=== PATIENT | female | born 1970 | race Caucasian/White ===

== ENCOUNTER 2021-06-28 14:16 | Emergency (ER) | payer BC, SELFPAY ==
[2021-06-28 14:58] VITALS: BP 166/110; PULSE 67; RESP 18; TEMP 36.8; O2SAT 95; BMI 31.6
--- NOTE | 2021-06-28 15:19 | USR_ITS ---
PROCEDURE INFORMATION: Exam: US Duplex Right Lower Extremity Veins, Limited Exam date and time: 06/28/2021 3:19 PM Age: 51 years old Clinical indication: Pain; Leg, lower; Right; Additional info: Rle pain, no injury TECHNIQUE: Imaging protocol: Real-time Duplex ultrasound of the Right Lower Extremity with 2-D coronado scale, color Doppler flow and spectral waveform analysis with image documentation. Limited exam was focused on the right lower extremity veins. COMPARISON: No relevant prior studies available. FINDINGS: Right deep veins: Unremarkable. The common femoral, femoral, proximal profunda femoral, popliteal, and peroneal veins are patent without thrombus. Normal Doppler waveforms. Normal compressibility and/or augmentation response. Right superficial veins: Unremarkable. Saphenofemoral junction is patent without thrombus. Soft tissues: Unremarkable. US/[place] [id number] IMPRESSION: No evidence for deep venous thrombosis.
--- NOTE | 2021-06-28 15:22 | W.ED.EXTPRO ---
HPI - Extremity Problem General: Chief complaint: Extremity Problem,Nontraumatic Stated complaint: [place] [facility] [place] Time Seen by Provider: 06/28/21 15:10 History of Present Illness: HPI Narrative: Patient states she woke up with right lower extremity pain in the muscles today. Denies any injury. Thinks it might be slightly swollen. MD Complaint: extremity pain Onset (ago): hour(s) Location: right and lower extremity Severity scale (1-10): 3 Quality: aching Radiation: none Relieving factors: immobilization Exacerbating factors: range of motion and weight bearing Associated symptoms: Reports no associated symptoms; Deny chest pain, fever(s) or rash Review of Systems Const: Denies: fever(s), chills or body aches Eyes: Denies: change in vision or blurry vision ENMT: Denies: throat pain or nasal congestion Card: Denies: chest pain or dyspnea on exertion Resp: Denies: dyspnea, productive cough or non-productive cough GI: Denies: abdominal pain, nausea or vomiting Musc: Reports: extremity pain (Right lower extremity calf muscle) Skin/Breast: Denies: rash Neuro: Denies: headache(s) Psych: Denies: anxiety or depression Dread/Lymph: Denies: easy bruising PFSH ED PFSH: Social History Smoking and tobacco status: never smoked Physical Exam Const: COMMON NORMALS: no acute distress, average body habitus and patient oriented x3 HENMT: COMMON NORMALS: normocephalic HEAD & SCALP: normal to inspection and normocephalic FACE & SINUS: normal facial exam Eye: COMMON NORMALS: conjunctivae normal GENERAL EYE: appearance normal, both eyes and all related structures CONJUNCTIVA: Yes conjunctivae normal Neck/C-Spine: COMMON NORMALS: no JVD Chest: COMMONS NORMALS: normal inspection of the chest Resp: COMMON NORMALS: normal respiratory effort and clear to auscultation bilaterally AUSCULTATION: clear to auscultation bilaterally Cardio: COMMON NORMALS: no JVD, regular rate and regular rhythm RATE: regular rate RHYTHM: regular rhythm GI: COMMON NORMALS: Normal to inspection, nondistended, normoactive bowel sounds present Extremity: NARRATIVE EXTREMITY EXAM: Positive Homans' sign right calf tenderness stability the calf muscle no redness or swelling noted distal neurovascular intact. Neuro: COMMON NORMALS: patient oriented x3 Course Vital Signs: Vital signs: Vital Signs Temperature 98.2 F 06/28/21 14:58 Pulse Rate 66 06/28/21 16:22 Respiratory Rate 14 06/28/21 16:22 Blood Pressure 164/111 06/28/21 16:22 Pulse Oximetry 95 06/28/21 16:22 MDM - Extremity (Nontraumatic) MDM Narrative: Medical decision making narrative: Right leg calf strain and hypertension. DVT study was negative. Patient encouraged to check blood pressure daily follow-up primary care provider. Discharge Plan Discharge Patient Disposition: Home Clinical Impression: HTN (hypertension) Qualifiers: Hypertension type: essential hypertension Qualified Code(s): I10 - Essential (primary) hypertension Muscle strain of right lower leg Qualifiers: Encounter type: initial encounter Qualified Code(s): S86.911A - Strain of unspecified muscle(s) and tendon(s) at lower leg level, right leg, initial encounter Condition: Stable Prescriptions: New Voltaren Arthritis Pain 1 % gel 4 g topical QID Qty: 100 RF: 0 No Action levothyroxine [Synthroid] 88 mcg tablet 88 mcg PO DAILY Qty: 30 RF: 0 Discharge Orders: Discharge ED (Routine); Ordered 06/28/21 Ordered By: Vinh Warner Referrals: Airam Castano DO [Primary Care Provider] - Discharge Diet: Usual diet Discharge Activity: Increase activity as tolerated Patient Instructions: Muscle Strain (ED), Chronic Hypertension (ED) Activity Restrictions/Additional Instructions: Follow-up with medical provider as directed. Take medications as prescribed. Return to the ER or your medical provider if condition worsens. Please read and understand discharge instructions. If any questions ask please. Alternate moist heat and cold to area. Check blood pressure daily. Stand Alone Forms: Work/School Release Coding Level of Care Code ED Plant Security Guard for Ambar Fwd Exam Comprehensive
[2021-06-28 16:22] VITALS: BP 164/111; PULSE 66; RESP 14; O2SAT 95
== END 2021-06-28 17:01 | disposition home or self-care (01) ==
PROVIDERS: Emergency Provider Nurse Practitioner Family; PCP Family Medicine
DX: S86.911A Strain of unspecified muscle(s) and tendon(s) at lower leg level, right leg, initial encounter (principal); I10 Essential (primary) hypertension; X58.XXXA Exposure to other specified factors, initial encounter
CPT/HCPCS: 93971; 99281

== ENCOUNTER → 2021-09-03 16:36 | Outpatient (BNVA) | payer BC, SELFPAY | PROVIDERS: PCP Family Medicine; Visit Provider Family Medicine | DX: I10 Essential (primary) hypertension (principal); E03.9 Hypothyroidism, unspecified; Z13.220 Encounter for screening for lipoid disorders; Z13.6 Encounter for screening for cardiovascular disorders | CPT/HCPCS: 80053; 80061; 84439; 84443; 85025 ==

== ENCOUNTER → 2021-10-14 10:30 | Outpatient (BNVA) | payer BC, SELFPAY | PROVIDERS: PCP Family Medicine; Visit Provider Family Medicine | DX: E03.9 Hypothyroidism, unspecified (principal) | CPT/HCPCS: 84439; 84443 ==

== ENCOUNTER → 2022-01-27 12:03 | Outpatient (BNVA) | payer SELFPAY | PROVIDERS: PCP Family Medicine; Visit Provider Family Medicine | DX: J02.9 Acute pharyngitis, unspecified (principal) | CPT/HCPCS: 87071; 87880 ==

== ENCOUNTER → 2022-07-06 10:40 | Outpatient (BNVA) | payer SELFPAY | PROVIDERS: PCP Family Medicine; Visit Provider Family Medicine | DX: I10 Essential (primary) hypertension (principal); E03.9 Hypothyroidism, unspecified; Z02.1 Encounter for pre-employment examination | CPT/HCPCS: 80053; 80061; 82043; 84443; 85025 ==

== ENCOUNTER 2023-11-24 08:41 | Emergency (ER) | payer OTHER, SELFPAY ==
[2023-11-24] VITALS (7 sets, daily range): BP systolic 130–236; BP diastolic 87–164; PULSE 67–88; RESP 18; O2SAT 94–97; BMI 35.1
--- NOTE | 2023-11-24 08:56 | XR_ITS ---
WS: [id number] XR chest 1V portable [id number] REASON FOR EXAM: cp FINDINGS: Chest is unchanged compared to 03/14/2017. Moderate tortuosity and ectasia of the thoracic aorta. Normal heart size. Calcified granulomas disease in both hemithoraces. No acute/subacute pulmonary parenchymal or pleural abnormality. Mild to moderate degenerative spondylosis in the mid and lower thoracic spine. IMPRESSION: Stable chest without acute abnormality.
--- NOTE | 2023-11-24 08:56 | ECG_ITS ---
[facility] Test Date: 2023-11-24 Pat Name: Niyah Doll Department: Room: Gender: Female Bpm Architect: : 1970 Requested By: Peter Troy Order Number: [id number] Ania MD: Delbert Vasquez M.D. Measurements Intervals [place] Rate: 90 P: 16 ME: 124 QRS: 34 QRSD: 76 T: 57 QT: 374 QTc: 459 Interpretive Statements SINUS RHYTHM No previous ECG available for comparison Electronically Signed On 11-24-2023 16:29:18 QUARRYING MANAGER by Delbert Vasquez M.D. [id number] f
--- NOTE | 2023-11-24 08:57 | W.ED.CHESTPA ---
HPI - Chest Pain General: Chief Complaint: Chest Pain Stated Complaint: Chest Pains Time Seen by Provider: 11/24/23 08:44 Source: patient Mode of arrival: ambulatory Limitations: no limitations History of Present Illness: This patient was referred to the emergency department because of concerns about possible chest pain equivalent. She states that yesterday she had some discomfort in her shoulder blade that seem to radiate up into her neck. She states that she had another episode today. It was noted that she was hypertensive yesterday as well as today and because of the nature of her symptoms was referred to the emergency department. She was started on antihypertensives yesterday but has not completed that regimen yet. She does not have a history of hypertension. She does have a history of thyroid dysfunction and is taking thyroid replacement. She is a non-smoker, nonalcohol user, none street drug user. She has not recently taken any ueqi-[id number]-pfsiosm cough and cold medications. She does admit to increased exogenous stressors with new medical diagnoses and her brother which is causing some anxiety and stress. She has had a hysterectomy as well as a cholecystectomy. He does have his family history of coronary disease. There is no associated shortness of breath, diaphoresis, nausea with her current symptoms. Associated symptoms: Deny abdominal pain, fever(s), nausea, palpitations, syncope or vomiting Review of Systems Const: Denies: fever(s) or chills Eyes: Denies: change in vision ENMT: Denies: throat pain or odynophagia Card: Denies: palpitations, syncope or pre-syncope Resp: Denies: productive cough, non-productive cough or wheezing GI: Denies: abdominal pain, nausea, vomiting or diarrhea : Denies: flank pain, difficulty voiding, dysuria or urinary frequency Musc: Reports: neck pain and back pain; Denies: extremity pain or extremity swelling Skin/Breast: Denies: rash or pruritus Neuro: Denies: headache(s), numbness in extremities, weakness in extremities, Slurred speech present or difficulty communicating thoughts Endo: Denies: polyuria or polydipsia PFSH ED PFSH: Social History Smoking and tobacco/nicotine status: never used tobacco/nicotine Alcohol intake: never Substance/Drug Use: never Physical Exam Narrative: EXAM NARRATIVE: She makes good eye contact. She is slightly anxious but answers questions in a goal-directed logical fashion. Const: COMMON NORMALS: patient oriented x3, healthy appearing and alert GENERAL APPEARANCE: cooperative and comfortable NUTRITIONAL APPEARANCE: overweight ORIENTATION/CONSCIOUSNESS: Yes awake HENMT: COMMON NORMALS: normocephalic, Normal external nose present, Normal nasal mucous membranes and turbinates present, moist oral mucous membranes and oropharynx normal HEAD & SCALP: normocephalic NOSE: Normal external nose present and Normal nasal mucous membranes and turbinates present Eye: COMMON NORMALS: Equal, round and reactive pupils present, EOMs intact bilaterally and conjunctivae normal CONJUNCTIVA: Yes conjunctivae normal PUPIL: Yes Equal, round and reactive pupils present Neck/C-Spine: COMMON NORMALS: no lymphadenopathy, no JVD and Thyroid normal THYROID: Thyroid normal CERVICAL SPINE: Yes cervical ROM normal and Yes Trapezius muscle tenderness bilateral OTHER: He has tenderness along the superior ridges of the trapezius bilaterally. Discrete trigger points are noted. She has no midline tenderness or step-off. She has normal range of motion to rotation and sidebending and forward bending. Chest: COMMONS NORMALS: normal inspection of the chest Resp: COMMON NORMALS: normal respiratory effort, No retractions, No use of accessory muscles and clear to auscultation bilaterally EFFORT & INSPECTION: Yes able to speak in complete sentences AUSCULTATION: clear to auscultation bilaterally Cardio: COMMON NORMALS: no JVD, regular rate, regular rhythm, No murmurs present (Cardio) and Peripheral pulses 2+ throughout RATE: regular rate RHYTHM: regular rhythm PERIPHERAL PULSES: Peripheral pulses 2+ throughout GI: COMMON NORMALS: Normal to inspection, nondistended, normoactive bowel sounds present and Soft to palpation PALPATION: Yes Soft to palpation : COMMON NORMALS: Yes no CVA tenderness BLADDER/KIDNEY EXAM: Yes no CVA tenderness Back/Pelvis: COMMON NORMALS: no CVA tenderness, thoracic and lumbar spine normal to inspection, thoraco-lumbar ROM normal and straight leg raise negative bilaterally Extremity: COMMON NORMALS: normal to inspection, full ROM, capillary refill normal, no calf tenderness and no pedal edema Neuro: COMMON NORMALS: patient oriented x3, moves all extremities and no focal motor deficits SENSORIUM/ORIENTATION: Yes alert CRANIAL NERVES: Yes CN normal except as noted Psych: COMMON NORMALS: mental status grossly normal MOOD & AFFECT: Yes depressed mood and Yes tearful Skin: COMMON NORMALS: no rashes or lesions noted, no wounds and turgor normal GENERAL SKIN EXAM: no rashes or lesions noted and turgor normal Course Reevaluation(s): Reevaluation #1: Patient is doing well. Pressure is now in the 128/70-80 range. She is comfortable and relaxed. No new or focal findings on repeat examination. I discussed current findings their implications limitations etc. Undoubtedly some of her exogenous stress is contributing to her labile hypertension or in fact may have unmasked underlying and unknown hypertension. We discussed monitoring blood pressure at home, salt avoidance, initiating the medication regimen prescribed yesterday and also return precautions with both she and spouse. Time: 10:54 Vital Signs: Vital signs: Vital Signs Pulse Rate 74 11/24/23 09:16 Respiratory Rate 18 11/24/23 08:45 Blood Pressure 168/95 11/24/23 09:16 Pulse Oximetry 96 11/24/23 09:16 Oxygen Delivery Me thod Room Air 11/24/23 09:16 MDM - Chest Pain Medical Decision Making This patient presented to the emergency department because of concerns about interscapular discomfort as well as marked elevation in blood pressure. Patient's not had a known history of hypertension in the past but does admit to increasing amount of emotional stress recently with a new diagnosis and a brother. She had complained of some intrascapular pain without any diaphoresis shortness of breath etc. No prior history of similar symptoms no history of thromboembolic events no risk of same etc. Clinical examination was only significant and that she had significant systolic and diastolic hypertension. She had no EKG changes of concern. She did have a clinical exam which showed trapezius tender and trigger points and spasm but no other significant clinical findings. Workup to ensure no evidence of ACS, over replaced thyroid, abnormal kidney function ensued. Findings were reassuring blood pressure abated with time as well as a low-dose of the benzodiazepine while in the emergency department. She is stable at this time to be discharged she has a medication regimen prescribed by her primary care doctor that she will initiate we discussed home blood pressure monitoring as well as return precautions. Lab Data I reviewed the patient's lab results. 11/24/23 09:02 11/24/23 09:02 Laboratory Results WBC 8.18 10^3/uL (3.29-11.43) 11/24/23 09:02 RBC 5.11 10^6/uL (3.85-5.65) 11/24/23 09:02 Hgb 14.80 g/dL (11.27-16.99) 11/24/23 09:02 Hct 42.8 % (36-47) 11/24/23 09:02 MCV 83.8 fl (85-98) L 11/24/23 09:02 MCH 29.0 pg (27-33) 11/24/23 09:02 MCHC 34.6 g/dL (30-55) 11/24/23 09:02 RDW 13.0 % (12.1-15.1) 11/24/23 09:02 Plt Count 205 10^3/cmm (157-399) 11/24/23 09:02 MPV 11.7 fL (7.4-10.4) H 11/24/23 09:02 Neut % (Auto) 53.7 % 11/24/23 09:02 Lymph % (Auto) 33.7 % 11/24/23 09:02 [place] % (Auto) 9.2 % 11/24/23 09:02 Eos % (Auto) 2.8 % 11/24/23 09:02 Baso % (Auto) 0.4 % 11/24/23 09:02 Neut # (Auto) 4.39 10^3/uL (1.8-7.7) 11/24/23 09:02 Lymph # (Auto) 2.8 10^3/uL (0.8-4.8) 11/24/23 09:02 [place] # (Auto) 0.8 10^3/uL (0.2-0.9) 11/24/23 09:02 Eos # (Auto) 0.2 10^3/uL (0.0-0.8) 11/24/23 09:02 Baso # (Auto) 0.0 10^3/uL (0.0-0.1) 11/24/23 09:02 Nucleated RBC % (auto) 0 % 11/24/23 09:02 Nucleated RBCs # 0.0 /100WBC 11/24/23 09:02 Sodium 139 mmol/L (136-145) 11/24/23 09:02 Potassium 3.8 mmol/L (3.5-5.1) 11/24/23 09:02 Chloride 102 mmol/L (98-107) 11/24/23 09:02 Carbon Dioxide 25 mmol/L (22-29) 11/24/23 09:02 Anion Gap 15.8 (5-19) 11/24/23 09:02 BUN 13 mg/dL (6-20) 11/24/23 09:02 Creatinine 0.8 mg/dL (0.5-0.9) 11/24/23 09:02 GFR Calculation 74.5 mL/min (90-130) L 11/24/23 09:02 Glucose 90 mg/dL (65-115) 11/24/23 09:02 Calculated Osmolality 288 mOsm/kg (285-295) 11/24/23 09:02 Calcium 8.9 mg/dL (8.5-10.5) 11/24/23 09:02 Troponin T Baseline 7 ng/L (0-10) 11/24/23 09:02 TSH 1.29 uIU/mL (0.27-4.20) 11/24/23 09:02 All radiology interpretation(s) finalized by discharge EKG Data EKG 1: I personally reviewed and interpreted this EKG as follows: Interpretation: Resting EKG reveals a ventricular rate of 90 bpm. SC interval, QRS duration, corrected QT interval normal. [place] is normal. No acute ST-T wave changes. Normal sinus rhythm without any ischemic changes. Discharge Plan Discharge Patient Disposition: Home Clinical Impression: Elevated blood pressure reading, Grief reaction Condition: Stable Prescriptions: No Action thyroid (pork) [TRAVELING CLERK Thyroid] 90 mg tablet 90 mg PO DAILY cyclobenzaprine 10 mg Tablet 10 mg PO TID PRN (Reason: Muscle Spasm) levothyroxine 88 mcg Tablet 88 mcg PO DAILY losartan 25 mg Tablet 25 mg PO DAILY Lexapro 10 mg Tablet 10 mg PO DAILY Discharge Orders: Discharge ED (Routine); Ordered 11/24/23 Ordered By: Peter Troy Referrals: Raul Amaya DO [Primary Care Provider] - 2 weeks Discharge Diet: Usual diet and Low Salt Discharge Activity: Increase activity as tolerated Patient Instructions: Opioid Safety, Pain Management Activity Restrictions/Additional Instructions: Purchase or acquire a blood pressure cuff for monitoring your blood pressure at home which we recommend doing once daily after you have been sitting for 10 to 15 minutes. Initiate the medications prescribed by your primary care doctor today. If you develop any ongoing symptoms of chest pain shortness of breath or other concerns at any time you are welcome to return to the emergency department. Stand Alone Forms: Work/School Release Coding Level of Care Code ED Clinical Research Nurse Coordinator for Ambar Larose
[2023-11-24 09:11] LABS: Basophils % 0.4 %; Eosinophils # 0.2 10^3/uL (0.0-0.8); Eosinophils % 2.8 %; Hematocrit 42.8 % (36-47); Lymphocytes # 2.8 10^3/uL (0.8-4.8); Lymphocytes % 33.7 %; Mean Corpuscular HGB Conc 34.6 g/dL (30-55); Mean Corpuscular Volume 83.8 fl (85-98); Mean Platelet Volume 11.7 fL (7.4-10.4); Monocytes # 0.8 10^3/uL (0.2-0.9); Monocytes % 9.2 %; Neutrophils # 4.39 10^3/uL (1.8-7.7); Neutrophils % 53.7 %; Nucleated Red Blood Cells % 0 %; Platelet Count 205 10^3/cmm (157-399); Red Blood Count 5.11 10^6/uL (3.85-5.65); White Blood Count 8.18 10^3/uL (3.29-11.43)
[2023-11-24] MEDS: LORazepam 2 mg/mL INJ 10 mL MDV 0.5 MG IVP (09:12)
[2023-11-24 09:33] LABS: Troponin(5th) Baseline 7 ng/L (0-10)
[2023-11-24 09:40] LABS: Anion Gap 15.8 (5-19); Blood Urea Nitrogen 13 mg/dL (6-20); Calcium 8.9 mg/dL (8.5-10.5); Carbon Dioxide 25 mmol/L (22-29); Chloride 102 mmol/L (98-107); Glomerular Filtration Rate 74.5 mL/min (90-130); Glucose 90 mg/dL (65-115); Osmolality Calculated 288 mOsm/kg (285-295); Potassium 3.8 mmol/L (3.5-5.1); Sodium 139 mmol/L (136-145); Thyroid Stimulating Hormone 1.29 uIU/mL (0.27-4.20)
--- NOTE | 2023-11-24 09:59 | PC.PHAR ---
PT STATES THEY GAVE HER CLONIDINE 0.1 MG BEFORE ARRIVING HERE. PT ALSO TOOK THYROID PORK 90 MG THIS MORNING. LAST FILLED HERE 07/04/23
--- NOTE | 2023-11-24 10:56 | ECG_ITS ---
[facility] Test Date: 2023-11-24 Pat Name: Niyah Doll Department: Room: Gender: Female Logistics Manager: : 1970 Requested By: Peter Troy Order Number: [id number] Jorge MD: Delbert Vasquez M.D. Measurements Intervals [place] Rate: 65 P: 54 RI: 145 QRS: 31 QRSD: 81 T: 63 QT: 439 QTc: 458 Interpretive Statements SINUS RHYTHM POSSIBLE LEFT ATRIAL ENLARGEMENT [-0.1mV P-WAVE IN V1/V2] NONSPECIFIC T-WAVE ABNORMALITY Compared to ECG 11/24/2023 08:46:52 T-wave abnormality now present Electronically Signed On 11-24-2023 16:31:17 LEVI MAKER by Delbert Vasquez M.D. [id number]
[2023-11-24 11:26] LABS: Troponin 5 2HR 13.27 ng/L (0-10); Troponin 5 2HR Delta 6.27 ABS# (0-10)
== END 2023-11-24 12:03 | disposition home or self-care (01) ==
PROVIDERS: Emergency Provider Emergency Medicine; PCP Family Medicine
DX: F43.20 Adjustment disorder, unspecified (principal); R03.0 Elevated blood-pressure reading, without diagnosis of hypertension
CPT/HCPCS: 36415; 71045; 80048; 84443; 84484; 85025; 93005; 96374; 99285; J2060